=== PATIENT | female | born 1980 | race Caucasian/White ===

== ENCOUNTER 2018-03-17 09:34 | Outpatient (CLI) | payer OTHER | END 2018-03-17 09:35 | disposition home or self-care (01) | LOC: BICRAD 09:34 | PROVIDERS: ATTEND Family Medicine | DX: M79.672 Pain in left foot (principal); M20.12 Hallux valgus (acquired), left foot ==

== ENCOUNTER 2021-06-16 17:11 | Outpatient (CLI) | payer OTHER ==
[2021-06-17 00:59] LABS: SARS-CoV-2 PCR by NAA Not Detected (NotDetected)
== END 2021-06-16 17:12 | disposition home or self-care (01) ==
LOC: LABBT 17:11
PROVIDERS: ATTEND Specialist
DX: Z01.812 Encounter for preprocedural laboratory examination (principal); R22.1 Localized swelling, mass and lump, neck; K11.8 Other diseases of salivary glands; Z20.822 Contact with and (suspected) exposure to COVID-19
CPT/HCPCS: 85014; U0003; U0005

== ENCOUNTER 2021-06-19 11:07 | Day surgery (SDC) | payer OTHER ==
[2021-06-18 14:29] VITALS: BMI 25.0
[2021-06-19] MEDS ORDERED: Lidocaine 1% w/Epinephrine 1:100K 20 ML VIAL ONE (11:26)
[2021-06-19] MEDS ORDERED: Acetaminophen 500 MG TAB ONE (11:53)
[2021-06-19] MEDS ORDERED: Midazolam HCl 2 mg/2 ml Vial ONE (12:20)
[2021-06-19] MEDS ORDERED: Fentanyl 100 MCG/2 ML VIAL ONE (12:43)
[2021-06-19] MEDS ORDERED: Dexamethasone 20 MG/5 ML VIAL ONE (12:46)
[2021-06-19] MEDS ORDERED: PHENYLEPHRINE-NS 100 MCG/ML 10 ML SYRINGE ONE (12:46)
[2021-06-19] MEDS ORDERED: Ketorolac Tromethamine 30 MG/ML VIAL ONE (12:46)
[2021-06-19] MEDS ORDERED: Labetalol HCl 100 MG/20 ML VIAL ONE (12:46)
[2021-06-19] MEDS ORDERED: Lidocaine 1% PF 5 ML VIAL ONE (12:46)
[2021-06-19] MEDS ORDERED: Rocuronium Bromide 10 MG/ML (10ML VIAL) ONE (12:46)
[2021-06-19] MEDS ORDERED: Ondansetron PF 4 MG/2 ML Vial ONE (12:46)
[2021-06-19] MEDS ORDERED: PROPOFOL 200 MG/20 ML VIAL ONE (12:46)
[2021-06-19] MEDS ORDERED: HYDROcodone/Acetaminophen 5/325 mg Tablet ONE (15:12)
== END 2021-06-19 15:52 | disposition home or self-care (01) ==
LOC: SDC 11:07
PROVIDERS: ATTEND Specialist
PROC: 0CB80ZZ Excision of Right Parotid Gland, Open Approach (ICD-10-PCS; principal; 2021-06-19)
DX: D11.0 Benign neoplasm of parotid gland (principal); I10 Essential (primary) hypertension; G89.4 Chronic pain syndrome; G43.009 Migraine without aura, not intractable, without status migrainosus; Z79.891 Long term (current) use of opiate analgesic; Z79.899 Other long term (current) drug therapy; Z88.0 Allergy status to penicillin; Z88.2 Allergy status to sulfonamides; Z98.1 Arthrodesis status
CPT/HCPCS: 88307; J1100; J1885; J2250; J2405; J2704; J3010

== ENCOUNTER 2022-11-27 13:17 | Outpatient (CLI) | payer OTHER | END 2022-11-27 13:18 | disposition home or self-care (01) | LOC: BICRAD 13:17 | PROVIDERS: ATTEND Nurse Practitioner Family | DX: M54.50 Low back pain, unspecified (principal) | CPT/HCPCS: 72120 ==